=== PATIENT | male | born 1990 | race Caucasian/White ===

== ENCOUNTER 2023-10-31 11:57 | Emergency (ER) | payer SELFPAY ==
[~2023-10-31] VITALS: Ht 185.4 cm; Wt 108.9 kg
[~2023-10-31 11:57] MED LIST: KEFLEX500 M1 PO
[2023-10-31] MEDS ORDERED: SODIUM CHLORIDE 0.9% 1,000 ML IV ONE (12:20)
[2023-10-31] MEDS ORDERED: Ondansetron Hydrochloride 4 MG/2 ML VIAL IV ONE (12:20)
[2023-10-31 12:35] LABS: BASO % 0.5 % (0.0-1.0); EOS # 0.2 10*3/uL (0.0-0.4); EOS % 2.3 % (1.0-4.0); HEMATOCRIT 43.7 % (42.0-52.0); LYMPH # 1.5 10*3/uL (1.3-4.4); LYMPH % 18.2 % (27.0-41.0); MEAN CELL VOLUME 91.2 fl (80.0-94.0); MEAN CORPUSCULAR HGB 28.8 pg (27.0-31.0); MEAN CORPUSCULAR HGB CONC 31.6 g/dl (33.0-37.0); MEAN PLATELET VOLUME 9.7 fl (9.6-12.3); MONO # 0.6 10*3/uL (0.1-1.0); MONO % 6.8 % (3.0-9.0); NEUT # 5.9 10*3/uL (2.3-7.9); PLATELET COUNT AUTOMATED 320 10*3/uL (130-400); RED BLOOD COUNT 4.79 10*6/uL (4.50-5.90); RED CELL DISTRI WIDTH 13.2 % (0-14.5); WHITE BLOOD COUNT 8.1 10*3/uL (4.8-10.8)
[2023-10-31 12:48] LABS: ACT PARTIAL THROMBO TIME 30.7 SECONDS (20.0-32.1)
[2023-10-31 12:58] LABS: ALKALINE PHOSPHATASE 71 U/L (46-116); BUN 10 mg/dl (9-23); CHLORIDE 109 mmol/L (98-107); LIPASE 25 U/L (12-53); POTASSIUM 4.1 mmol/L (3.4-5.1); SGPT/ALT 34 U/L (5-49)
[2023-10-31] MEDS ORDERED: Ketorolac Tromethamine 30 MG/ML VIAL IV ONE (13:15)
[2023-10-31] MEDS ORDERED: BENZOCAINE 20% 11.9 GM GEL T STA (13:15)
[2023-10-31] MEDS ORDERED: Lidocaine Hydrochloride 15 ML UDC PO STA (13:15)
[2023-10-31] MEDS ORDERED: ONDANSETRON4 MG SL (13:16)
[2023-10-31] MEDS ORDERED: PENICILLIN VK500 MG PO (13:16)
[2023-10-31] MEDS ORDERED: PENICILLIN V POTASSIUM 500 MG TAB PO ONE (13:20)
== END 2023-10-31 13:30 | disposition home or self-care (01) ==
LOC: ED 11:57
PROVIDERS: Nurse Practitioner Family
DX: K04.7 Periapical abscess without sinus (principal); R11.2 Nausea with vomiting, unspecified; R10.2 Pelvic and perineal pain; Z88.5 Allergy status to narcotic agent; Z79.899 Other long term (current) drug therapy

== ENCOUNTER 2024-05-04 09:40 | Emergency (ER) | payer OTHER ==
[~2024-05-04] VITALS: Ht 185.4 cm; Wt 104.3 kg
[~2024-05-04 09:40] MED LIST changes: +ONDANSETRON4 MG SL; +PENICILLIN VK500 MG PO
[2024-05-04] MEDS ORDERED: diphenhydrAMINE hydrochloride 50 MG/ML VIAL IV ONE (09:50)
[2024-05-04] MEDS ORDERED: Dexamethasone Sodium Phospha 20 MG/5 ML VIAL IV ONE (09:50)
[2024-05-04] MEDS ORDERED: FAMOTIDINE 50 ML IV ONE (09:55)
[2024-05-04] MEDS ORDERED: PREDNISONE50 MG PO (11:51)
== END 2024-05-04 11:57 | disposition home or self-care (01) ==
LOC: ED 09:40
DX: L50.9 Urticaria, unspecified (principal); T78.40XA Allergy, unspecified, initial encounter; Z88.5 Allergy status to narcotic agent; X58.XXXA Exposure to other specified factors, initial encounter